=== PATIENT | male | born 1965 | race Caucasian/White ===

== ENCOUNTER 2020-06-01 02:20 | Emergency (ER) | payer OTHER ==
[~2020-06-01] VITALS: Ht 195.6 cm; Wt 106.6 kg
[~2020-06-01 02:20] MED LIST: OMEPRAZOLE20 M2 PO; UNICOMPLEX M TA1 TA1 PO
[2020-06-01] MEDS ORDERED: CLARITIN10 M3 PO (02:31)
[2020-06-01 02:48] LABS: URINE BILIRUBIN NEGATIVE (Negative); URINE BLOOD 2+ (Negative); URINE CLARITY CLEAR; URINE COLOR YELLOW; URINE GLUCOSE-RANDOM NEGATIVE (Negative); URINE KETONES TRACE (Negative); URINE LEUKOCYTES-REFLEX NEGATIVE (Negative); URINE NITRITE-REFLEX NEGATIVE (Negative); URINE PROTEIN NEGATIVE (Negative); URINE SPECIFIC GRAVITY 1.025 (1.005-1.030); URINE UROBILINOGEN 0.2 E.U./dl (0.2-1.0)
[2020-06-01 02:51] LABS: ABSOLUTE LYMPHOCYTES 1.3 thou/uL (0.8-5.3); ABSOLUTE MONOCYTES 0.9 thou/uL (0.0-1.2); ABSOLUTE NEUTROPHILS 9.9 thou/uL (1.6-8.1); BASOPHILS 0.2 %; EOSINOPHILS 0.3 %; HEMOGLOBIN 13.8 gm/dL (14.0-18.0); LYMPHOCYTES 10.7 %; MCHC 35.3 g/dL (28.0-37.0); MCV 93.7 fL (80.0-100.0); MONOCYTES 7.4 %; MPV 6.5 fl. (7.2-11.1); NUCLEATED RBCS 0 /100WBC; PLATELET COUNT* 229 thou/uL (150-400); POLYS 81.4 %; RBC 4.16 mil/uL (4.50-6.00); RDW-CV 13.4 % (10.5-14.5); WBC 12.1 thou/uL (4.0-11.0)
[2020-06-01 03:25] LABS: CASTS None Seen /LPF (None Seen); CRYSTALS None Seen /LPF (None Seen); MUCUS 4-6 Moderate strn/LPF (None Seen); SQUAMOUS 0-3 Few /LPF (0-3); URINE RBC 3-10 Few /HPF (0-2); URINE WBC-REFLEX 0-5 Rare /HPF (0-5)
[2020-06-01 03:35] LABS: CALCIUM 8.4 mg/dL (8.5-10.1); CREATININE 1.3 mg/dL (0.6-1.3); POTASSIUM 3.4 mmol/L (3.5-5.1)
[2020-06-01 03:40] LABS: ALBUMIN 4.3 g/dL (3.4-5.0); TOTAL BILIRUBIN 0.7 mg/dL (<0.1-1.0); TOTAL PROTEIN 7.8 g/dL (6.4-8.2)
[2020-06-01] MEDS ORDERED: ZOFRAN ODT4 MG PO (04:34)
[2020-06-01] MEDS ORDERED: HYDROCODON-ACE1 EAC7 PO (04:34)
[2020-06-01 04:45] VITALS: BP 155/74
== END 2020-06-01 04:45 | disposition home or self-care (01) ==
LOC: M.ERS 02:20
PROVIDERS: Personal Emergency Response Attendant
DX: N23 Unspecified renal colic (principal); N20.1 Calculus of ureter; Z90.89 Acquired absence of other organs; Z90.49 Acquired absence of other specified parts of digestive tract

== ENCOUNTER 2021-11-02 12:06 | Inpatient (IN) | payer OTHER ==
[~2021-11-02] VITALS: Ht 195.6 cm; Wt 108.9 kg
[2021-11-02] VITALS (9 sets, daily range): BP systolic 119–171; BP diastolic 81–94
[~2021-11-02 12:06] MED LIST changes: +CLARITIN10 M3 PO; +HYDROCODON-ACE1 EAC7 PO; +ZOFRAN ODT4 MG PO
--- NOTE | 2021-11-02 12:40 | EKG ---
[place] [address] ELECTROCARDIOGRAM REPORT Name: MARBELLA HUI Room: [facility].#: [id number] Admission: Attend Phys: Discharge: Date of : 67 Date of Service: 11/02/21 1211 Report #: [id number] THIS REPORT FOR: //name// [facility] ED Test Date: 2021-11-02 Test Time: 12:11:47 Pat Name: MARBELLA EZ Department: Room: Gender: Commissioning Specialist: ESTEFANIA : 1965 Requested By: Teddy Jones Order Number: [id number] MD: Lui Watkins Measurements Intervals [place] Rate: 61 P: 57 [place]: 182 QRS: 56 QRSD: 112 T: 23 QT: 423 QTc: 426 Interpretive Statements Sinus rhythm Borderline intraventricular conduction delay Nonspecific inferior ST-T abnormality Compared to ECG 01/05/2017 04:47:[address]-T changes have occurred Electronically Signed On 11-02-2021 12:40:06 PANTOGRAPH TRANSFERRER by Lui Watkins [email or web address] <ELECTRONICALLY SIGNED> By: Lui Watkins MD, FAC 11/02/21 1240 1211 1211 Lui Watkins MD, [facility] /EPI
[2021-11-02 12:59] LABS: ABSOLUTE EOSINOPHILS 0.1 thou/uL (0.0-0.7); ABSOLUTE LYMPHOCYTES 1.2 thou/uL (0.8-5.3); ABSOLUTE MONOCYTES 0.6 thou/uL (0.0-1.2); ABSOLUTE NEUTROPHILS 5.6 thou/uL (1.6-8.1); BASOPHILS 0.5 %; EOSINOPHILS 1.2 %; HEMATOCRIT 41.4 % (42.0-52.0); HEMOGLOBIN 14.3 gm/dL (14.0-18.0); LYMPHOCYTES 15.6 %; MCH 32.1 pg (26.0-34.0); MCHC 34.5 g/dL (28.0-37.0); MONOCYTES 8.3 %; MPV 6.5 fl. (7.2-11.1); NUCLEATED RBCS 0 /100WBC; PLATELET COUNT* 181 thou/uL (150-400); POLYS 74.4 %; RBC 4.45 mil/uL (4.50-6.00); RDW-CV 12.9 % (10.5-14.5); WBC 7.5 thou/uL (4.0-11.0)
[2021-11-02 13:17] LABS: CALCIUM 9.1 mg/dL (8.5-10.1); CREATININE 0.9 mg/dL (0.6-1.3); POTASSIUM 4.7 mmol/L (3.5-5.1)
[2021-11-02 13:27] LABS: ALBUMIN 4.2 g/dL (3.4-5.0); MAGNESIUM 1.9 mg/dL (1.8-2.4); TOTAL BILIRUBIN 0.5 mg/dL (<0.1-1.0); TOTAL PROTEIN 7.3 g/dL (6.4-8.2)
[2021-11-02 14:18] LABS: CHOLESTEROL 199 mg/dL (<200); HDL CHOLESTEROL 35 mg/dL (>40); LDL CHOLESTEROL 127 mg/dL (<100); TC:HDL 5.7 Ratio (Not establshd); TRIGLYCERIDE 189 mg/dL (<150); VLDL 38 mg/dL (<40)
[2021-11-02 14:19] LABS: SERUM ASSESSMENT CLEAR
--- NOTE | 2021-11-02 18:39 | NUR ---
PT SETTLED INTO ROOM. BED FLAT, UP AT 2230 PER ORDERS. ANGIOMAX TURNED OFF AT 1830 PER SHIP ERECTOR ORDERS. R GROIN SITE C/D/I, NO S/S HEMATAOMA OR BLEEDING
--- NOTE | 2021-11-02 20:00 | NUR ---
RECEIVED REPORT AND ASSUMED CARE OF PT, ASSESSMENT COMPLETED. PT REMAINS FLAT DUE TO POST CATH ORDERS. RT GROIN SITE WITHOUT REDNESS, HEMATOMA OR DRAINAGE. DRSG DRY AND INTACT. DENIES PAIN OR SOA. VOIDING PER URINAL. TELEMETRY ON SHOWING SR. GIRLFRIEND AT BEDSIDE.
[2021-11-03 00:19] VITALS: BP 133/84
[2021-11-03 04:00] VITALS: BP 125/83
[2021-11-03 06:32] LABS: ABSOLUTE EOSINOPHILS 0.1 thou/uL (0.0-0.7); ABSOLUTE LYMPHOCYTES 1.3 thou/uL (0.8-5.3); ABSOLUTE MONOCYTES 0.8 thou/uL (0.0-1.2); ABSOLUTE NEUTROPHILS 6.4 thou/uL (1.6-8.1); BASOPHILS 0.4 %; EOSINOPHILS 0.9 %; HEMATOCRIT 40.7 % (42.0-52.0); HEMOGLOBIN 14.2 gm/dL (14.0-18.0); LYMPHOCYTES 14.7 %; MCH 32.2 pg (26.0-34.0); MCHC 34.8 g/dL (28.0-37.0); MCV 92.6 fL (80.0-100.0); MONOCYTES 9.4 %; MPV 7.1 fl. (7.2-11.1); NUCLEATED RBCS 0 /100WBC; PLATELET COUNT* 172 thou/uL (150-400); POLYS 74.6 %; RBC 4.39 mil/uL (4.50-6.00); RDW-CV 13.1 % (10.5-14.5); WBC 8.5 thou/uL (4.0-11.0)
[2021-11-03 07:23] LABS: ALBUMIN 4.1 g/dL (3.4-5.0); CALCIUM 8.5 mg/dL (8.5-10.1); CK-MB MASS 152.1 ng/mL (<0.5-3.6); CREATININE 1.1 mg/dL (0.6-1.3); POTASSIUM 4.1 mmol/L (3.5-5.1); TOTAL BILIRUBIN 0.6 mg/dL (<0.1-1.0); TOTAL PROTEIN 6.8 g/dL (6.4-8.2)
[2021-11-03 08:17] VITALS: BP 142/92
--- NOTE | 2021-11-03 10:12 | CARD ---
[address] [address] CARDIAC CATH REPORT Name: MARBELLA HUI Room: [address] Alex Oliva#: [id number] Admission: 11/02/21 Attend Phys: Darinel Roman MD Discharge: Date of : 67 Report #: [id number] THIS REPORT FOR: cc: Jenni Rios Ahmad W. DO Holkins,Lui Ramirez MD [facility] ~ APPROVED REPORT Study performed: 11/02/2021 14:54:09 Patient Details Patient Status: ED Room #: The patient is a 56 year-old male Event Personnel Dr. Watkins, Galilea Reina RN, Lady Banegas RTR, Yessica Shen RTR Procedures Performed Coronary Angiogram, BRENNA placement first OM Indication Non-STEMI , Chest pain Risk Factors Hypercholesterolemia, Hypertension Admission/Lab Medications/Medications given during procedure Aspirin, Glycoprotein IllbIlla Inhibitors, Platelet Aff. Inhib. Procedure Narrative The patient was brought urgently to the Cardiac Catheterization Laboratory and was prepped and draped in a sterile manner. The right femoral was infiltrated with 2% Lidocaine subcutaneous anesthesia. IV conscious sedation was used throughout procedure with appropriate monitoring and was performed in the presence of a registered nurse who was an independent trained observer other than the physician performing the procedure. A [place] 6 FR sheath was inserted into the right femoral artery. Coronary angiography was performed using coronary diagnostic catheters. The right coronary system was accessed and visualized with a Diagnostic 6Fr JR4 catheter. The left coronary system was accessed and visualized with a Diagnostic 6Fr JL4 catheter. Pre-demployment femoral angiogram was performed [place] [address] CARDIAC CATH REPORT Name: MARBELLA HUI Room: [address] Hazel#: [id number] Admission: 11/02/21 Attend Phys: Darinel Roman MD Discharge: Date of : 67 Report #: [id number] Closure device was deployed with a 6 Fr Angioseal STS 6Fr. The patient tolerated the procedure well and there were no complications associated with the procedure. A hematoma occurred. Hematoma was approximately 2cm in diameter and was resolved before exiting the procedure room. Intraoperative Conscious Sedation Sedation start time: 1512 Case end Time: 1608 Fentanyl 25.0 mcg Versed 2.0 mg Fluoro Time: 14.3 minutes Dose: DAP 46732 cGycm2 1261 mGy Contrast Type and Amount: Omnipaque 335 mL Coronary Angiography The patient's coronary anatomy is right dominant. Diagnostic Cath Left Main 0% narrowing LAD 75% left and proximal LAD stenosis with 60% proximal first diagonal narrowing Circumflex 100% occlusion of the first marginal branch of the nondominant circumflex with prominent intraluminal thrombus; there was 90% ostial second marginal stenosis Right Coronary Dominant vessel with a total occlusion of the early takeoff posterior descending branch of the acute margin with recanalization and faint antegrade filling and left to right collaterals filling the distal portion of that vessel Left Ventriculography Left Ventriculography was not performed. Hemodynamics The aortic pressure is 141/82 mmHg with a mean of 109 mmHg. PCI Technique Lesion Anticoagulation was achieved with Angiomax. Percutaneous coronary intervention was performed on the first obtuse marginal branch segment Lower branch. The lesion stenosis prior to intervention was 100% with ELISABET 0 flow. A 6FR LAUNCHER EBU 4.0 Guide Catheter was used to engage the Left Main ostium. A IG: BMW 190cm Interventional Guidewire was used to cross the lesion. [place] [address] CARDIAC CATH REPORT Name: MARBELLA HUI Room: [address] [place]#: [id number] Admission: 11/02/21 Attend Phys: Darinel Roman MD Discharge: Date of : 67 Report #: [id number] A Balloon catheter Mini Trek RX 2.0 X 12 was inserted and inflated up to 14atm for 12seconds. Additional Inflation: 16atm for 8seconds. STENT DEPLOYMENT A drug-eluting stent Popeye RX Stent 2.0X8mm was inserted and inflated up to 12atm for 10seconds. Additional Inflation: 15atm for 10seconds. Additional Inflation: 16atm for 10seconds. Final angiography reveals 10 % stenosis with ELISABET 3 flow. COMMENTS This was a bifurcation lesion requiring both wiring and dilatation of both branches with deployment of a drug-eluting stent in the inferior branch. Balloon Dilation Additional Inflation: 17atm for 10seconds. Additional Inflation: 18atm for 13seconds. Conclusion 1. Acute non-ST segment elevation inferolateral myocardial infarction 2. Multivessel coronary artery disease characterized by the following: A 75% clefted proximal LAD stenosis with 60% proximal first diagonal narrowing B 100% acute occlusion of the first marginal branch of the nondominant circumflex with prominent intraluminal thrombus; there was 90% ostial second marginal stenosis C dominant right coronary artery with total occlusion of the early takeoff posterior descending branch at the acute margin with recanalization and delayed antegrade flow to the distal vessel with prominent gkna-ah-vcqeg collaterals filling the distal portion of the vessel 3 normal systemic pressure throughout the study 4. Successful PCI with deployment of a drug-eluting stent in the first marginal branch of the circumflex with 10% [place] [address] CARDIAC CATH REPORT Name: MARBELLA HUI Room: [address] Alex RamirezRSheridan#: [id number] Admission: 11/02/21 Attend Phys: Darinel Roman MD Discharge: Date of : 67 Report #: [id number] and ELISABET-3 flow to the bifurcating distal branches of this vessel Recommendations Cardiac Risk Reduction Program Aggressive Medical Therapy Medications Administered Aspirin (any) Prasugrel Diagnostic Cath Approved by: Lui Watkins MD Date/Time: 11/03/2021 10:05:57 <ELECTRONICALLY SIGNED> By: Lui Watkins MD, [facility] 11/03/21 1012 1012 1012Lui Watkins MD, FAC /INF
--- NOTE | 2021-11-03 10:30 | CON ---
[address] [address] CONSULTATION Name: MARBELLA HUI Room: [address] Alex Oliva#: [id number] Admission: 11/02/21 Attend Phys: Darinel Roman MD Discharge: Date of : 67 Report #: [id number] THIS REPORT FOR: cc: Jenni Rios Ahmad W. DO Holkins,Lui Ramirez MD [facility] ~ DATE OF CONSULTATION: 11/03/2021 LOCATION: The patient is in [facility] [place]. HISTORY OF PRESENT ILLNESS: The patient is a very pleasant 56-year-old male, who presented yesterday with lingering chest discomfort. He had subtle inferior ST-T abnormalities and a mildly increased troponin I. In this context, we elected to proceed with cardiac catheterization urgently. That study revealed significant coronary disease characterized by 75% cleft at proximal LAD narrowing, total occlusion of the first marginal branch of the circumflex with 90% ostial second marginal stenosis and total occlusion of one of the prominent terminal branches of dominant right coronary artery with left to right collaterals filling the distal right coronary artery. Given these findings, I elected to proceed with PCI, deploying one 2.0 x 8 [place] drug-eluting stent in the first marginal branch and dilating the other branch of the bifurcating lesion. There was 10% residual narrowing with ELISABET 3 flow to the distal vessel. Troponin I angel to a peak value of 47,710 in the high sensitivity analysis with a peak CK-MB of 152.1, reflecting a moderate injury. Additional lab post-procedurally was normal with sodium 141, potassium 4.1, BUN 13, creatinine 1.1. Glucose was minimally elevated at 102. Lipids were abnormal with a cholesterol 199, LDL of 127 mg percent, triglycerides of 189 and HDL of 35 mg percent. The patient was placed on dual-antiplatelet therapy and statin. PHYSICAL EXAMINATION: VITAL SIGNS: Demonstrates an undistressed male whose blood pressure is mildly elevated at 142/92, pulse rate is 65, respirations are 18 per minute. NECK: Jugular venous pressure is normal. CHEST: Clear. CARDIOVASCULAR: Reveals normal first and second heart sounds without murmurs or gallops. ABDOMEN: Soft. EXTREMITIES: Without edema with good healing [place] [address] CONSULTATION Name: MARBELLA HUI Room: [address] Alex Oliva#: [id number] Admission: 11/02/21 Attend Phys: Darinel Roman MD Discharge: Date of : 67 Report #: [id number] catheterization. IMPRESSION: 1. Acute inferolateral myocardial infarction, interrupted by PCI to the circumflex. 2. Multivessel coronary artery disease. 3. Hypertension. 4. Hypercholesterolemia. PLAN: 1. Continue dual-antiplatelet therapy and statin. 2. Initiate therapy with lisinopril 10 mg daily. 3. We will start a low dose of beta blockade; that was not initiated yesterday by virtue of low resting heart rate during the case. We discussed the need for subsequent intervention to the second marginal branch of the circumflex and the proximal LAD. The patient is considering his options with respect to the timing of this. <ELECTRONICALLY SIGNED> By: Lui Watkins MD, [facility] 11/03/21 1030 0846 [id number] Watkins MD, FAC /nt
[2021-11-03 11:54] VITALS: BP 136/79
--- NOTE | 2021-11-03 12:57 | NUR ---
PLAN FOR THE PT TO D/C HOME TODAY HOME WITH SELF-CARE. NO CM D/C PLANNING NEEDS ANTICIPATED. CM WILL REMAIN AVAILABLE TO ASSIST AND FOLLOW NEEDED.
[2021-11-03 16:00] VITALS: BP 114/76
--- NOTE | 2021-11-03 18:56 | NUR ---
Pt up ad jan; VSS. Pleasant; no complaints. Will have second heart cath tomorrow, anticipating further intervention with likelihood off additional stent placement per Dr. Ruiz. Will be NPO after [place]. Rt groin stable. Will continue to monitor.
[2021-11-03 20:00] VITALS: BP 98/59
[2021-11-04] VITALS (14 sets, daily range): BP systolic 93–151; BP diastolic 51–101
--- NOTE | 2021-11-04 05:13 | NUR ---
Alert and oriented x 4. VS stable,HR stsble. He gets up independently . He has slept well.
--- NOTE | 2021-11-04 11:44 | CARD ---
[address] [address] CARDIAC CATH REPORT Name: MARBELLA HUI Room: [address] IN .R.#: [id number] Admission: 11/03/21 Attend Phys: Darinel Roman MD Discharge: Date of : 67 Report #: [id number] THIS REPORT FOR: cc: Jenni Rios Ahmad W. DO Holkins, John M. MD [facility] ~ APPROVED REPORT Study performed: 11/04/2021 09:17:25 Patient Details Patient Status: In-Patient Room #: The patient is a 56 year-old male Event Personnel Lui Watkins Woodwork Teacher, Evelyne Joseph RN RN, Yessica Shen Scrub, Lady Banegas RTR Monitor, Santhosh Ruiz Collection Systems Worker Procedures Performed Art Access - R femoral artery Left Heart Cath w/or w/o Coronaries BRENNA Place w/wo Plasty Single LAD BRENNA Place w/wo Plasty Single OM Hemostasis w/ Angioseal Indication Staged PCI in the context of recent non-STEMI with acute PCI to the first marginal branch on 11/02 with multivessel disease noted at the time. Risk Factors Hypercholesterolemia, Hypertension Previous Procedures/Diagnoses Previous PCI, Previous [place] Admission/Lab Medications/Medications given during procedure Oxygen Nasal cannula 2 l per min, 0.9% Sodium Chloride IV 75 ml per hr, Lidocaine Subcut 16 ml, Angiomax IV 16.5 ml, Angiomax Drip IV 38.1 ml per hr, Effient PO 30 mg Procedure Narrative The patient was brought electively to the Cardiac Catheterization Laboratory and was prepped and draped in a sterile manner. The right femoral was infiltrated with 2% [place]idoc[place] [address] CARDIAC CATH REPORT Name: MARBELLA HUI Room: [address] IN [facility]#: [id number] Admission: 11/03/21 Attend Phys: Darinel Roman MD Discharge: Date of : 67 Report #: [id number] conscious sedation was used throughout procedure with appropriate monitoring and was performed in the presence of a registered nurse who was an independent trained observer other than the physician performing the procedure. A [place] 6 FR sheath was inserted into the right femoral artery. Coronary angiography was performed using coronary diagnostic catheters. The left coronary system was accessed and visualized with a 6FR LAUNCHER EBU 4.0 Guide catheter. The left ventricle was accessed and visualized with a Diagnostic 6 Fr Pigtail catheter. Left ventricular/Aortic Valve gradient assessed via catheter pullback. Left ventriculogram was performed in [place] projection. Pre-demployment femoral angiogram was performed . Closure device was deployed with a Fr Angioseal STS 6Fr. The patient tolerated the procedure well and there were no complications associated with the procedure. There was no hematoma. Intraoperative Conscious Sedation Sedation start time: 10:01 Case end Time: 10:50 Fentanyl 50 mcg Versed 3 mg Fluoro Time: 10.4 minutes Dose: DAP 33611 cGycm2 1047 mGy Contrast Type and Amount: Visipaque 255 mL Coronary Angiography The patient's coronary anatomy is right dominant. Diagnostic Cath Left Main 0% narrowing LAD 75% eccentric proximal LAD stenosis with 40% ostial first diagonal narrowing Circumflex 30% proximal first marginal narrowing with a widely patent mid first marginal stent; there was 90% ostial second marginal stenosis Right Coronary Recently defined total occlusion of the right coronary artery at the acute margin with recanalization to faintly fill the posterior descending branch in delayed antegrade fashion; there were left to right collaterals to the posterior descending branch Left Ventriculography The left ventricle is normal in size with Mildly decreased contractility. The left ventricular ejection fraction is estimated to be 45%. Left ventricular wall motion abnormalities are present. There is no mitral insufficiency. Inferobasilar [place] [address] CARDIAC CATH REPORT Name: MARBELLA HUI Room: [address] IN [facility]#: [id number] Admission: 11/03/21 Attend Phys: Darinel Roman MD Discharge: Date of : 67 Report #: [id number] Hemodynamics The aortic pressure is 158/89 mmHg with a mean of 79 mmHg. The left ventricular pressure is 152/11 mmHg with a mean of mmHg. The left ventricular end diastolic pressure is 17 mmHg. There was no gradient across the aortic valve upon pullback. PCI Technique Lesion Anticoagulation was achieved with Angiomax Drip. Patient was preloaded with Angiomax IV 16.5 ml. Percutaneous coronary intervention was performed on the second obtuse marginal branch segment. The lesion stenosis prior to intervention was 90% with ELISABET 3 flow. A 6FR LAUNCHER EBU 4.0 Guide Catheter was used to engage the left ostium. A IG: [place] 190cm Interventional Guidewire was used to cross the lesion. BALLOON DILATION A Balloon catheter Trek RX 2.25 X 8 was inserted and inflated up to 12.00atm for 16seconds. Additional Inflation: 12.00atm for 12seconds. Additional Inflation: 18.00atm for 14seconds. STENT DEPLOYMENT A drug-eluting stent Xience Angelita 2.5X8mm was inserted and inflated up to 10.00atm for 14seconds. Additional Inflation: 12.00atm for 7seconds. Final angiography reveals 10 % stenosis with ELISABET 3 flow. PCI Technique Lesion 2 Percutaneous Coronary Intervention was performed on the proximal left anterior descending artery segment. Patient was preloaded with Angiomax IV 16.5 ml. The lesion stenosis prior to intervention was 75% with ELISABET 3 flow. A 6FR LAUNCHER EBU 4.0 Guide Catheter was used to engage the left ostium. A IG: [place] 190cm Interventional Guidewire was used to cross the lesion. Balloon Dilation A Balloon catheter NC Trek RX 3.50x15 was inserted and inflated up to 16.00atm for 13seconds. Additional Inflation: 18.00atm for 11seconds. An 014 [place] flex wire was placed in the first diagonal to protect that artery while the LAD intervention was performed. Stent Deployment A drug-eluting stent [place] RX Stent 4.0X30mm was inserted and inflated up to 14.00atm for 14seconds. Additional Inflation: 16.00atm [address] [address] CARDIAC CATH REPORT Name: MARBELLA HUI Room: [address]#: [id number] Admission: 11/03/21 Attend Phys: Darinel Roman MD Discharge: Date of : 67 Report #: [id number] for 11seconds. Post Stent Deployment Balloon Dilation A Balloon catheter NC Trek RX 4.0 X 8 was inserted and inflated up to 15.00atm for 10seconds. Additional Inflation: 17.00atm for 10seconds. Final angiography reveals 10 % stenosis with ELISABET 3 flow. Comments The PCI was technically complex by virtue of the bifurcation nature of the LAD/ diagonal disease. This required complex wiring and significant lesion preparation prior to deployment of the 4.0 x 30 mm Popeye stent in the LAD. Conclusion 1. Significant multivessel coronary artery disease characterized by the following: A 75% eccentric proximal LAD stenosis with 40% ostial proximal first diagonal narrowing B nondominant circumflex with 30% proximal first marginal narrowing and a widely patent recently deployed mid first marginal stent; there was 90% ostial second marginal stenosis C dominant right coronary artery with recently defined total occlusion of the right coronary artery at the acute margin with recanalization and delayed antegrade filling into the posterior descending branch with glyf-ul-ctgmb collaterals filling the posterior descending branch in retrograde fashion 2. Mild systemic systolic hypertension with moderate elevation of left ventricular end diastolic pressure at rest 3. Successful PCI with deployment of a drug-eluting stent at the site of 90% ostial second marginal stenosis with 10% residual narrowing and ELISABET-3 flow to the distal vessel 4. Successful PCI with deployment of a drug-eluting stent at the site of 75% eccentric proximal LAD stenosis with 10% residual narrowing following stent deployment and ELISABET-3 flow to the distal vessel and 40% residual narrowing of the diagonal [place] [address] CARDIAC CATH REPORT Name: MARBELLA HUI Room: [address] [place] .R.#: [id number] Admission: 11/03/21 Attend Phys: Darinel Roman MD Discharge: Date of : 67 Report #: [id number] Recommendations Cardiac Risk Reduction Program Aggressive Medical Therapy Medications Administered Prasugrel Diagnostic Cath Approved by: Santhosh Ruiz MD Date/Time: 11/04/2021 11:36:00 <ELECTRONICALLY SIGNED> By: Lui Watkins MD, [facility] 11/04/21 1144 1144 1144Lui Watkins MD, FAC /INF
--- NOTE | 2021-11-04 13:12 | EKG ---
[place] [address] ELECTROCARDIOGRAM REPORT Name: MARBELLA HUI Room: [address] ADM IN M.R.#: [id number] Admission: 11/03/21 Attend Phys: Darinel Roman, Discharge: Date of : 67 Date of Service: 11/02/21 1648 Report #: [id number] THIS REPORT FOR: //name// [facility] Test Date: 2021-11-02 Test Time: 16:48:12 Pat Name: MARBELLA HUI Department: Room: [facility] Gender: M Business Services Vice President: CESIA : 1965 Requested By: Lui Watkins Order Number: [id number] Kacey MD: Santhosh Ruiz Measurements Intervals [place] Rate: 68 P: 64 DC: 186 QRS: 79 QRSD: 108 T: -10 QT: 406 QTc: 432 Interpretive Statements Sinus rhythm Consider left atrial enlargement Borderline T abnormalities, inferior leads Minimal ST elevation, anterior leads, early repolarization Compared to ECG 11/02/2021 12:11:47 T-wave abnormality now present ST (T wave) deviation still present Electronically Signed On 11-04-2021 13:12:36 HAZMAT CDL DRIVER by Santhosh Ruiz [email or web address] <ELECTRONICALLY SIGNED> By: Santhosh Ruiz MD, FACC 11/04/21 1312 1648 1648 Santhosh Ruiz MD, [facility] /EPI
--- NOTE | 2021-11-04 13:16 | EKG ---
[place] [address] ELECTROCARDIOGRAM REPORT Name: MARBELLA HUI Room: [address] ADM IN M.R.#: [id number] Admission: 11/03/21 Attend Phys: Darinel Roman, Discharge: Date of : 67 Date of Service: 11/04/21 1153 Report #: [id number] THIS REPORT FOR: //name// [facility] Test Date: 2021-11-04 Test Time: 11:53:16 Pat Name: MARBELLA HUI Department: Room: [address] Gender: M Wired Music Operator: : 1965 Requested By: Lui Watkins Order Number: [id number] Kacey MD: Santhosh Ruiz Measurements Intervals [place] Rate: 60 P: 49 MA: 196 QRS: 67 QRSD: 108 T: -66 QT: 437 QTc: 437 Interpretive Statements Sinus rhythm Borderline T abnormalities, inferior leads ST elevation, consider anterior injury Tall T, consider metabolic/ischemic abnrm Compared to ECG 11/02/2021 16:48:12 Myocardial infarct finding now present T-wave abnormality still present ST (T wave) deviation still present Electronically Signed On 11-04-2021 13:16:26 HANDS ASSEMBLER by Santhosh Ruiz [email or web address] <ELECTRONICALLY SIGNED> By: Santhosh Ruiz MD, FAC 11/04/21 1316 1153 1153 Santhosh Ruiz MD, [facility] /EPI
[2021-11-05 01:00] VITALS: BP 116/77
[2021-11-05 04:30] VITALS: BP 121/79
[2021-11-05 05:48] LABS: ABSOLUTE EOSINOPHILS 0.2 thou/uL (0.0-0.7); ABSOLUTE LYMPHOCYTES 1.8 thou/uL (0.8-5.3); ABSOLUTE MONOCYTES 0.9 thou/uL (0.0-1.2); ABSOLUTE NEUTROPHILS 5.6 thou/uL (1.6-8.1); BASOPHILS 0.5 %; EOSINOPHILS 1.8 %; HEMOGLOBIN 13.6 gm/dL (14.0-18.0); LYMPHOCYTES 21.1 %; MCH 32.3 pg (26.0-34.0); MCHC 35.7 g/dL (28.0-37.0); MCV 90.4 fL (80.0-100.0); MONOCYTES 10.7 %; MPV 6.8 fl. (7.2-11.1); NUCLEATED RBCS 0 /100WBC; PLATELET COUNT* 157 thou/uL (150-400); POLYS 65.9 %; RBC 4.21 mil/uL (4.50-6.00); RDW-CV 12.7 % (10.5-14.5); WBC 8.5 thou/uL (4.0-11.0)
[2021-11-05 06:16] LABS: CK-MB MASS 6.1 ng/mL (<0.5-3.6)
[2021-11-05 06:22] LABS: ALBUMIN 3.9 g/dL (3.4-5.0); CALCIUM 8.3 mg/dL (8.5-10.1); TOTAL BILIRUBIN 0.7 mg/dL (<0.1-1.0); TOTAL PROTEIN 6.5 g/dL (6.4-8.2)
--- NOTE | 2021-11-05 07:06 | NUR ---
Alert and oriented x 4. VS are stable,sinus rhthym. Dressing to rt groin dry and intact. He is voiding well. [place] [address]. Message sent to physician. EKG done this am NSR. It is normal that after a cardiac cath that troponin is elevated. It is trending down. He has been awake mostly this shift. He denies pain.
[2021-11-05 08:20] VITALS: BP 132/84
[2021-11-05] MEDS ORDERED: LISINOPRIL10 MG PO (09:14)
[2021-11-05] MEDS ORDERED: BAYER CHEWABLE81 MG PO (09:14)
[2021-11-05] MEDS ORDERED: LIPITOR 40 MG T40 M1 PO (09:14)
[2021-11-05] MEDS ORDERED: COREG6.25 MG PO (09:14)
[2021-11-05] MEDS ORDERED: NITROGLYCERIN0.4 MG SUBLING (09:14)
[2021-11-05] MEDS ORDERED: EFFIENT10 MG PO (09:14)
--- NOTE | 2021-11-05 09:45 | EKG ---
[place] [address] ELECTROCARDIOGRAM REPORT Name: MARBELLA HUI Room: [address] ADM IN M.R.#: [id number] Admission: 11/03/21 Attend Phys: Darinel Roman, Discharge: Date of : 67 Date of Service: 11/05/21 0401 Report #: [id number] THIS REPORT FOR: //name// [facility] Test Date: 2021-11-05 Test Time: 04:01:14 Pat Name: MARBELLA HUI Department: Room: [address] Gender: M Maintenance Director: MAHAD : 1965 Requested By: Lui Watkins Order Number: [id number] Kacey MD: Bart Hickey Measurements Intervals [place] Rate: 68 P: 40 [place]: 168 QRS: 99 QRSD: 110 T: -19 QT: 395 QTc: 421 Interpretive Statements Sinus rhythm with pvc right axis Borderline T abnormalities, inferior leads Compared to ECG 11/04/2021 11:53:16 T-wave abnormality still present Electronically Signed On 11-05-2021 9:45:41 NURSING PROGRAM DIRECTOR by Bart Hickey [email or web address] <ELECTRONICALLY SIGNED> By: Bart Hickey MD, FAC 11/05/21 0945 0401 0401 Bart Hickey MD, [facility] /EPI
[2021-11-05 12:09] VITALS: BP 119/86
[2021-11-05 13:50] VITALS: BP 119/86
--- NOTE | 2021-11-05 15:44 | NUR ---
PLAN FOR THE PT TO D/C HOME TODAY WITH SELF-CARE. NO CM D/C PLANNING NEEDS ANTICIAPATED. CM WILL REMAIN AVAILABLE TO ASSIST AND FOLLOW NEEDED.
--- NOTE | 2021-11-05 15:45 | NUR ---
Reviewed discharge teaching with patient; verbalized understanding. IV and gambling monitor discontinued. Discharged from unit per WC.
== END 2021-11-05 15:42 | disposition home or self-care (01) | DRG 246 ==
LOC: M.ERS 12:06 → M.TBA-CV 13:48 → M.TBA-ER 13:48 → M.TBA-CV 16:28 → M.2W 17:55
PROVIDERS: Emergency Medicine Emergency Medical Services; Internal Medicine; Registered Nurse; ADMIT Internal Medicine; ATTEND Internal Medicine
PROC: B41F1ZZ Fluoroscopy of Right Lower Extremity Arteries using Low Osmolar Contrast (ICD-10-PCS; principal; 2021-11-02)
PROC: 4A023N7 Measurement of Cardiac Sampling and Pressure, Left Heart, Percutaneous Approach (ICD-10-PCS; principal; 2021-11-02)
PROC: 027034Z Dilation of Coronary Artery, One Artery with Drug-eluting Intraluminal Device, Percutaneous Approach (ICD-10-PCS; principal; 2021-11-02)
PROC: B2111ZZ Fluoroscopy of Multiple Coronary Arteries using Low Osmolar Contrast (ICD-10-PCS; principal; 2021-11-02)
PROC: B215YZZ Fluoroscopy of Left Heart using Other Contrast (ICD-10-PCS; 2021-11-04)
PROC: 4A023N7 Measurement of Cardiac Sampling and Pressure, Left Heart, Percutaneous Approach (ICD-10-PCS; 2021-11-04)
PROC: 027135Z Dilation of Coronary Artery, Two Arteries with Two Drug-eluting Intraluminal Devices, Percutaneous Approach (ICD-10-PCS; 2021-11-04)
PROC: B211YZZ Fluoroscopy of Multiple Coronary Arteries using Other Contrast (ICD-10-PCS; 2021-11-04)
PROC: B41FYZZ Fluoroscopy of Right Lower Extremity Arteries using Other Contrast (ICD-10-PCS; 2021-11-04)
DX: I21.19 ST elevation (STEMI) myocardial infarction involving other coronary artery of inferior wall (principal); I50.31 Acute diastolic (congestive) heart failure; I25.10 Atherosclerotic heart disease of native coronary artery without angina pectoris; E78.00 Pure hypercholesterolemia, unspecified; I25.110 Atherosclerotic heart disease of native coronary artery with unstable angina pectoris; I25.5 Ischemic cardiomyopathy; Z20.822 Contact with and (suspected) exposure to COVID-19; E78.5 Hyperlipidemia, unspecified; Z90.49 Acquired absence of other specified parts of digestive tract; Z87.891 Personal history of nicotine dependence; Z79.899 Other long term (current) drug therapy